=== PATIENT | female | born 2005 | race Caucasian/White ===

== ENCOUNTER 2025-03-24 01:08 | Emergency (ER) | payer BC, MEDICAID, SELFPAY ==
[2025-03-24 01:10] VITALS: BMI 22.6
[2025-03-24 01:19] VITALS: BP 120/90; PULSE 72; RESP 19; TEMP 36.7; O2SAT 100
--- NOTE | 2025-03-24 01:31 | XR_ITS ---
Examination: Complete OB ultrasound, less than 14 weeks, transabdominal Date and time of exam: March 24, 2025, 0157 hours INDICATIONS: Bleeding and cramping beginning 1 week ago Technique: Obstetrical ultrasound images less than 14 weeks performed via transabdominal imaging Findings: A normal shaped single intrauterine gestation is present in the uterus. CRL 0.58 cm corresponds to 6 weeks 3 days gestational age Cardiac motion 103 bpm Mild fluid in the cul-de-sac Ovaries obscured by bowel gas Ultrasonographic survey of visible and placental structures unremarkable. Amniotic fluid volume appears appropriate for this estimated gestational age. Impression: Viable intrauterine gestation 6 weeks 3 days.
--- NOTE | 2025-03-24 01:32 | PD.EDADULT ---
ED General RME/HPI General Chief complaint: General Adult/Misc Complain Stated complaint: 8 WKS PREG VAG BLEEDING Time Seen by Provider: 03/24/25 01:29 Arrival date/time: 03/24/25 01:08 19-year-old female G2, approximately 9 weeks gestation reports with complaints of vaginal bleeding and pelvic pain. Patient states the bleeding initially started about 1 week ago with vaginal spotting and has increased to robby bleeding with pelvic pressure. Patient denies any abdominal trauma nausea vomiting fever chills urinary urgency frequency or dysuria. Patient denies use of illicit substances were taken medications for symptoms Related Data Allergies Allergy/AdvReac Type Severity Reaction Status Date / Time No Known Allergies Allergy Verified 03/24/25 01:13 Review of Systems Constitutional Constitutional: Denies chills, Denies fever(s) and Denies headache(s) ENT Ears, Nose, Mouth, and Throat: Denies dizziness and Denies headache(s) Gastrointestinal Gastrointestinal: Denies nausea and Denies vomiting Genitourinary Genitourinary: Reports abnormal vaginal bleeding, Denies dysuria and Reports pelvic pain Musculoskeletal Musculoskeletal: Denies back pain and Denies myalgias Integumentary/Breasts Skin/Breast: Denies lesions and Denies sores Neurologic Neurologic: Denies dizziness and Denies headache(s) Past Medical History Social History SMOKING STATUS: Never smoker ED Exam External exam: Present normal external exam and erythema Speculum exam: Present vaginal bleeding Bimanual exam: Present normal bimanual exam; Absent adnexal tenderness, adnexal mass or uterine tenderness Course Quality Measures none Orders Category Date Time Status Pelvic Exam X1 Care 03/24/25 01:31 Completed US OB <= 14 weeks fetus Stat Exams 03/24/25 01:31 Taken Bacterial Vaginal Panel Stat Lab 03/24/25 01:55 Received Beta HCG,Quantitative Stat Lab 03/24/25 01:47 Completed Chlamydia/GC/TV - PCR Stat Lab 03/24/25 Ordered Vital Signs Vital signs: Vital Signs Temperature 98.1 F 03/24/25 01:19 Pulse Rate 72 03/24/25 01:19 Respiratory Rate 19 03/24/25 01:19 Blood Pressure 120/90 H 03/24/25 01:19 Pulse Oximetry (%) 100 03/24/25 01:19 Oxygen Delivery Method Room Air 03/24/25 01:19 Discharge Plan Plan Patient Disposition: Elopement Prescriptions/Referrals Referrals: Bianca Ni MD [Primary Care Provider, Medical] - In 1 week Problem List Clinical Impression: , spontaneous threatened Patient/Caregiver Discharge Instructions Print Language: Bulgarian
[2025-03-24 02:57] LABS: Beta HCG,Quantitative 9291 mIU/mL (<5.0)
--- NOTE | 2025-03-24 04:07 | PC.NURSE ---
Patient walked out of the ER upset stating, everyone was rude and mean to me during my visit here expect you I apologize to her and try to talk to her about but she continue to walk out. Provider was notified.
--- NOTE | 2025-03-24 04:09 | PRELIM_ITS ---
Obstetric ultrasound (transvaginal) with Doppler. March 24, 2025 at 0157 hours Clinical history: Vaginal bleeding/pelvic pain. Technique: Real-time obstetric ultrasound was performed. Comparison: None available at the time of this report. Findings: There is an intrauterine gestation with a single live fetus of mean gestational age 6 weeks and 3 days (CRL= 0.57 cm). cardiac activity is present at heart rate of 103 beats per minute. The yolk sac measures 0.2 cm. The uterus measures 8.3 x 4.6 x 5.8 cm. The ovaries were not visualized. Small amount of free fluid in the pelvis. No abnormalities by Doppler. Impression: Intrauterine gestation with a single live fetus of mean gestational age 6 weeks and 3 days. Small amount of free fluid in the pelvis, possibly functional. Report Electronically Signed By: Frantz Hernandez 03/24/2025 4:08:49 AM [EST]
[2025-03-24 11:04] LABS: BVAG Candida Negative (Negative); Bacterial Vaginosis Markers Positive (Negative); Candida glabrata Negative (Negative); Candida krusei PCR Negative (Negative); Trichomonas Negative (Negative)
== END 2025-03-24 04:10 | disposition left against medical advice (07) ==
PROVIDERS: Physician Assistant; Emergency Provider Emergency Medicine; PCP Family Medicine
DX: O20.0 Threatened abortion (principal); Z3A.01 Less than 8 weeks gestation of pregnancy
CPT/HCPCS: 36415; 76801; 81001; 81514; 84702; 87491; 87591; 87661; 99283

== ENCOUNTER 2025-03-24 08:26 | Emergency (ER) | payer BC, MEDICAID, SELFPAY ==
[2025-03-24 08:58] VITALS: BP 111/70; PULSE 85; RESP 18; TEMP 37; O2SAT 100
--- NOTE | 2025-03-24 09:07 | PD.EDVAGBL ---
ED OB Contraction Preg RMI/HPI General Chief complaint: Vaginal Bleeding Stated complaint: VAG BLEEDING Time Seen by Provider: 03/24/25 08:54 Source: patient Arrival date/time: 03/24/25 08:26 Mode of arrival: ambulatory Limitations: no limitations RME / HPI RME / HPI Narrative: 19 year old female who is 6 weeks 3 days gestational age, A1, presents to the ED for evaluation of vaginal bleeding today. Patient states the bleeding began 6 days ago. Initially described as faint spotting and blood to be reddish brown in color. Consulted with her OBGYN for the first time 5 days ago who performed test and told she was about 8 weeks 2 days, though did not have any labs performed. States this morning she woke up with her panty liner and shorts to be soaked with blood. Accompanied by pelvic cramping pain. States she was evaluated here at 01:00 AM today where she had an ultrasound performed showing an IUP measuring 6w2d and discharged home. However, states while at home she passed a large blood clot and noted the cramping pain to be worse. Returns today for reevaluation. No other associated symptoms reported. Related Data Allergies Allergy/AdvReac Type Severity Reaction Status Date / Time No Known Allergies Allergy Verified 03/24/25 01:13 Review of Systems Review of Systems Systems Reviewed: All systems reviewed, normal except as documented Past Medical History Social History SMOKING STATUS: Never smoker ED Exam General Limitations: Present no limitations General appearance: Present alert and in no apparent distress Head Head exam: Present atraumatic and normocephalic Eye Eye exam: Present normal appearance and EOMI ENT ENT exam: Present normal exam, normal oropharynx and mucous membranes moist Neck Neck exam: Present normal inspection, full ROM and trachea midline Respiratory Respiratory exam: Present normal lung sounds bilaterally Cardiovascular Cardiovascular exam: Present regular rate, normal rhythm and normal heart sounds Abdominal Exam Abdominal exam: Present soft and normal bowel sounds Extremities Exam Extremities exam: Present normal inspection Neurological Exam Neurological exam: Present alert and oriented X3 Psychiatric Psychiatric exam: Present normal affect and normal mood Skin Skin exam: Present warm, dry, intact and normal color Course Quality Measures none Vital Signs Vital signs: Vital Signs Temperature 98.6 F 03/24/25 08:58 Pulse Rate 85 03/24/25 08:58 Respiratory Rate 18 03/24/25 08:58 Blood Pressure 111/70 03/24/25 08:58 Pulse Oximetry (%) 100 03/24/25 08:58 Oxygen Delivery Method Room Air 03/24/25 08:58 Pulse ox is 100% on room air which is adequate. Vaginal Bleeding [facility] Narrative [facility] Narrative: Ladi Elias am scribing for and in the presence of Dr. Nickerson. Patient is a 19 yo female that is in the ED with vaginal bleeding while . VS and exam as listed. Prior provider ordered HCG quant and ob ultrasound. I offered additional studies, at this declined. HCG >9k. Ob ultrasound with single intrauterine gestation. Advised follow up with pcp and OB given risk of miscarriage. Close return precautions provided. Patient data External records reviewed:: [facility] previous records (I reviewed ED visit from earlier this morning ) Clinical information provided by:: patient Social determinants that could affect healthcare access:: none Patient has the following chronic illnesses:: No chronic medical hx reported How is presenting disease/condition affected by chronic disease/condition?: no chronic disease Evaluation data The following diagnostics were reviewed and interpreted by me:: other (specify) (no diagnostics ordered during this visit) Lab and/or radiology exams considered but not ordered:: None Interpretation Summary: See [facility] Medications / Prescriptions Medications or Prescriptions considered but not ordered:: None Medication administrations:: None Consultations Consultation(s) initiated? (list below): No Diagnosis Vaginal Bleeding Differential Diagnosis: missed , threatened , incomplete and vaginal bleeding Most likely diagnosis given after review of the tests above:: Threatened miscarriage Admission Indicated Admission indicated?: not indicated Explain why admission is indicated or not indicated:: With no condition needing emergent intervention, there was no indication for admission. Admission Request Was there a request for admission?: No Disposition Plan Disposition Plan: Discharge Discharge Attestation Discharge Attestation: The patient and all family members were given an opportunity to ask questions and understood the discharge instructions. Discharge instructions specifically effects, indications for sooner follow up or return to the emergency department, and the expected course of current diagnosis. Patient condition: Stable Discharge Plan Plan Patient Disposition: HOME (Self Care) Problem List Clinical Impression: Threatened miscarriage Patient/Caregiver Discharge Instructions Education Materials: ED Possible Miscarriage ... Additional Instructions: Your beta-hCG from earlier today was 9291 and your ultrasound showed a 6-week intrauterine gestation. Anytime there is bleeding there is risk of miscarriage. It is important that you talk to your primary care doctor as well as your administrative processor about your symptoms within the next 1 to 2 days. You can return to the emergency ferment anytime for further evaluation. Please return to the emergency department in 2 days to repeat your beta-hCG testing as this will help guide your administrative processor with your management. I recommend that you monitor bleeding if the bleeding gets worse, you feel lightheaded or have any other symptom of concern please return immediately to the emergency department. Print Language: Romansh Stand Alone Forms: [facility] Award Info., Patient Portal Info Letter
== END 2025-03-24 10:00 | disposition home or self-care (01) ==
LOC: SERX 09:39
PROVIDERS: Emergency Provider Emergency Medicine
DX: O20.0 Threatened abortion (principal); Z3A.01 Less than 8 weeks gestation of pregnancy
CPT/HCPCS: 99281

== ENCOUNTER 2025-04-04 07:53 | Emergency (ER) | payer BC, MEDICAID, SELFPAY ==
[2025-04-04 08:03] VITALS: BP 123/82; PULSE 79; RESP 18; TEMP 37.2; O2SAT 98; BMI 22.2
--- NOTE | 2025-04-04 08:06 | XR_ITS ---
Examination: OB Transvaginal ultrasound of the pelvis, complete Technique: Transvaginal sonographic images pelvis performed using shepherd scale imaging Exam date and time: . April 04, 2025, 0838 hours April 04, 2025, 0836 hours INDICATIONS: Vaginal bleeding beginning March 24, 2025. FINDINGS: Uterus 7.6 cm endometrial stripe 1.2 cm No intrauterine gestation or uterine mass. Right ovary 2.3 cm arterial flow 16 x 18 mm follicle Left ovary 2.9 cm arterial flow 9 mm follicle IMPRESSION: No intrauterine gestation or uterine mass
--- NOTE | 2025-04-04 08:06 | EDNOTE_ITS ---
ED OB Contraction Preg RMI/HPI General Chief complaint: Vaginal Bleeding Stated complaint: 6 weeks OB, vaginal bleeding on Sunday Time Seen by Provider: 04/04/25 08:05 Arrival date/time: 04/04/25 07:53 RME / HPI RME / HPI Narrative: See [facility] for Dr. Kirby's HPI Documentation. Related Data Allergies Allergy/AdvReac Type Severity Reaction Status Date / Time No Known Allergies Allergy Verified 04/04/25 07:59 Review of Systems Review of Systems Systems Reviewed: All systems reviewed, normal except as documented Past Medical History Social History SMOKING STATUS: Never smoker SUBSTANCE USE: does not use ALCOHOL: Never ED Exam Narrative Physical exam: See [facility] for Dr. Kirby's HPI Documentation. Course Quality Measures none Orders Category Date Time Status US OB transvaginal Stat Exams 04/04/25 08:06 Completed Beta HCG,Quantitative Stat Lab 04/04/25 08:22 Completed Bilirubin,Direct Stat Lab 04/04/25 08:22 Completed CBC Stat Lab 04/04/25 08:22 Completed CMP [Comprehensive Metabolic Panel] Stat Lab 04/04/25 08:22 Completed Magnesium Stat Lab 04/04/25 08:22 Completed Rh Testing Only Stat Lab 04/04/25 08:22 Completed TSH [Thyroid Stimulating Hormone] Stat Lab 04/04/25 08:22 Completed UA, C/S IF [Urinalysis, C/S if Indicated] Stat Lab 04/04/25 09:05 Completed Vital Signs Vital signs: Vital Signs Temperature 98.9 F 04/04/25 08:03 Pulse Rate 79 04/04/25 08:03 Respiratory Rate 18 04/04/25 08:03 Blood Pressure 123/82 04/04/25 08:03 Pulse Oximetry (%) 98 04/04/25 08:03 Oxygen Delivery Method Room Air 04/04/25 08:03 Vaginal Bleeding [facility] Narrative [facility] Narrative: This section includes all my notes and documentations, including HPI, PE, and ED course. Biju Kirby MD HPI: 19-year-old female LMP 01/22/2025 (GA 10 2/7 weeks) with severe bleeding and cramping several days ago, completely resolved. Currently, no bleeding and no cramping. No other complaints. ROS: All negative except as documented in HPI. Physical Exam: General: Alert and oriented. No acute distress when remaining still. Eyes: Conjunctivae and lids clear. ENT: No nasal congestion. Neck: Supple. Heart: RRR. Lungs: No respiratory distress. Good air movement. No rhonchi, wheezing, rales. Abdomen: Soft and nontender. Normal bowel sounds. No distension. No rebound or guarding. Back: No CVA tenderness. Skin: Warm and dry. Neuro: Alert and oriented X 3. I reviewed all diagnostic test results: My review of the OB ultrasound report is no IUP. Blood tests and urine tests unremarkable, including beta-hCG 33. At this point, diagnoses include: Miscarriage Treatment here included: None Recommended expectant management. Based on my best medical judgment, made decision no further evaluation or treatment indicated at this time. Patient understands and agrees to the discharge instructions customized and printed, see below. Discharge Instructions from Dr. Kirby printed for you: 1.? After evaluation, unfortunately you had a miscarriage. 2.? See a private doctor on 04/06/25 for recheck and further care. Ask to review all test results and official radiology reports, to make sure you receive all necessary follow-ups and monitoring. 3.? Seek immediate medical care with intolerable pain, extremely heavy vaginal bleeding (soaking more than 3 pads per hour), or with any concerns. Biju Kirby MD Patient data External records reviewed:: [facility] previous records Clinical information provided by:: patient Social determinants that could affect healthcare access:: none Patient has the following chronic illnesses:: Denies any PMHx, surgeries, daily medications, or known allergies. How is presenting disease/condition affected by chronic disease/condition?: no chronic disease Evaluation data The following diagnostics were reviewed and interpreted by me:: lab results and radiology exam(s) Lab and/or radiology exams considered but not ordered:: none Interpretation Summary: I reviewed all diagnostic test results: My review of the OB ultrasound report is no IUP. Blood tests and urine tests unremarkable, including beta-hCG 33. Medications / Prescriptions Medications or Prescriptions considered but not ordered:: none Medication administrations:: none Consultations Consultation(s) initiated? (list below): No Diagnosis Vaginal Bleeding Differential Diagnosis: missed , threatened , dysfunctional uterine bleeding, menometrorrhagia, incomplete and ectopic without intrauterine Most likely diagnosis given after review of the tests above:: Miscarriage Admission Indicated Admission indicated?: not indicated Explain why admission is indicated or not indicated:: With no condition needing emergent intervention, there was no indication for admission. Admission Request Was there a request for admission?: No Disposition Plan Disposition Plan: Discharge Discharge Attestation Discharge Attestation: The patient and all family members were given an opportunity to ask questions and understood the discharge instructions. Discharge instructions specifically effects, indications for sooner follow up or return to the emergency department, and the expected course of current diagnosis. Patient condition: Stable Discharge Plan Plan Patient Disposition: HOME (Self Care) Prescriptions/Referrals Referrals: No Primary/Family,Physician [Primary Care Provider] - In 1 week Problem List Clinical Impression: Miscarriage Patient/Caregiver Discharge Instructions Discharge Activity: activity as tolerated Education Materials: ED MISCARRIAGE Completed Additional Instructions: Discharge Instructions from Dr. Kirby printed for you: 1.? After evaluation, unfortunately you had a miscarriage. 2.? See a private doctor on 04/06/25 for recheck and further care. Ask to review all test results and official radiology reports, to make sure you receive all necessary follow-ups and monitoring. 3.? Seek immediate medical care with intolerable pain, extremely heavy vaginal bleeding (soaking more than 3 pads per hour), or with any concerns. Print Language: Mongolian Stand Alone Forms: [facility] Award Info., Patient Portal Info Letter
[2025-04-04 08:35] LABS: Basophils # (Auto) 0.1 Thou/mm3 (0.0-0.2); Basophils % (Auto) 1 % (0-2.5); Eosinophils # (Auto) 0.1 Thou/mm3 (0.0-0.5); Eosinophils % (Auto) 2 % (0-10); Hematocrit 38.9 % (36.0-46.0); Hemoglobin 12.9 g/dL (12.0-16.0); Immature Granulocytes Auto 0.01 Thou/mm3 (0.00-0.00); Lymphocytes # (Auto) 2.2 Thou/mm3 (1.0-4.8); Lymphocytes % (Auto) 37 % (10-50); Mean Corpuscular HGB Conc 33.2 g/dl (31.0-37.0); Mean Corpuscular Hemoglobin 31.1 pg (25.0-35.0); Mean Corpuscular Volume 94 fL (80-100); Monocytes # (Auto) 0.4 Thou/mm3 (0.0-0.8); Monocytes % (Auto) 7 % (0-12); Neutrophils # (Auto) 3.1 Thou/mm3 (1.8-7.7); Neutrophils % (Auto) 53 % (37-80); Nucleated Red Blood Cell # 0.00 Thou/mm3 (0.00-0.00); Nucleated Red Blood Cell % 0 /100 WBC (0); Platelet Count 324 Thou/mm3 (140-440); RDW Standard Deviation 42.3 fL (36.4-46.3); Red Blood Count 4.15 Miln/mm3 (4.00-5.20); White Blood Count 5.8 Thou/mm3 (4.5-11.0)
[2025-04-04 09:17] LABS: Collection Type, Urine Clean Catch
[2025-04-04 09:21] LABS: Alanine Aminotransferase 32 U/L (10-49); Albumin, Serum 5.1 gm/dL (3.5-5.0); Albumin/Globulin Ratio 1.9 (1.2-2.2); Alkaline Phosphatase 58 U/L (46-116); Anion Gap 8 (7-16); Aspartate Amino Transferase 25 U/L (0-34); BUN/Creatinine Ratio 17 Ratio (12-20); Beta HCG,Quantitative 33 mIU/mL (<5.0); Bilirubin,Direct 0.2 mg/dL (0.0-0.3); Bilirubin,Total 0.5 mg/dL (0.3-1.2); Blood Urea Nitrogen 12 mg/dL (9-23); Calcium 9.7 mg/dL (8.3-10.6); Calcium (Corrected) 9.7 mg/dL (8.5-10.1); Carbon Dioxide 27.2 mMol/L (20.0-31.0); Chloride 108 mMol/L (98-107); Creatinine (Component) 0.7 mg/dL (0.6-1.3); Estimated Creatinine Clearance 124.7 mL/min (>60); Globulin 2.7 gm/dL (2.3-3.5); Glucose 95 mg/dL (74-106); Magnesium 2.0 mg/dL (1.6-2.6); Osmolality,Calculated 284 (275-295); Potassium 5.7 mMol/L (3.4-5.1); Sodium 143 mMol/L (136-145); Thyroid Stimulating Hormone 1.33 uIU/mL (0.55-4.78); Total Protein 7.8 gm/dL (5.7-8.2); eGFR > 60 See Note
[2025-04-04 09:25] LABS: Bilirubin,Urine Negative (Negative); Blood,Urine Negative (Negative); Clarity,Urine Clear (Clear/Hazy); Color,Urine Yellow (Lt Yel-Yel); Culture Indicated,Urine Not Indicated; Glucose, Urine Negative (Negative); Ketones,Urine Negative (Negative); Leukocyte Esterase,Urine Positive (Negative); Nitrite,Urine Negative (Negative); PH,Urine 6.0 (5.0-7.0); Protein,Urine Negative (Neg - Trace); RBC,Urine 3 /hpf (0-3); Specific Gravity,Urine 1.030 (1.001-1.035); Squamous Epithelial Cell,Urine 7 /hpf (0-5); Urobilinogen,Urine Negative mg/dL (0.0-1.0); WBC,Urine 4 /hpf (0-5)
== END 2025-04-04 09:31 | disposition home or self-care (01) ==
PROVIDERS: Emergency Provider Emergency Medicine
DX: O03.9 Complete or unspecified spontaneous abortion without complication (principal)
CPT/HCPCS: 36415; 76817; 80053; 81001; 82248; 83735; 84443; 84702; 85025; 86901; 99283